=== PATIENT | male | born 1975 | race Caucasian/White ===

== ENCOUNTER 2018-06-11 19:59 | Emergency (ER) | payer OTHER ==
[~2018-06-11] VITALS: Ht 180.3 cm; Wt 81.7 kg
[2018-06-11] MEDS ORDERED: Percocet 10-321 EACH PO (22:13)
[2018-06-11] MEDS ORDERED: Cleocin HCl300 MG PO (22:21)
== END 2018-06-11 22:33 | disposition home or self-care (01) ==
LOC: ER 19:59
DX: S02.651A Fracture of angle of right mandible, initial encounter for closed fracture (principal); W01.198A Fall on same level from slipping, tripping and stumbling with subsequent striking against other object, initial encounter; Z88.5 Allergy status to narcotic agent; F17.210 Nicotine dependence, cigarettes, uncomplicated
CPT/HCPCS: 70450; 70486; 96372; 99284-25; A9270-GY; J3010